=== PATIENT | female | born 1950 | race Caucasian/White ===

== ENCOUNTER 2020-12-27 10:29 | Inpatient (IN) | payer MEDICARE, OTHER ==
[~2020-12-27] VITALS: Ht 152.4 cm; Wt 46.3 kg
[~2020-12-27 10:29] MED LIST: ACIDOPHILUS1 EAC1 PO; ALIGN4 MG PO; AMLODIPINE BESYL5 MG PO; ASPIR 8181 MG PO; CALCIUM + VITA1 EACH PO; EMERGEN-C 1,01000 MG PO; GABAPENTIN100 MG PO; HAIR, SKIN & N1 EACH PO; ONE A DAY VITAMIN PO; TURMERIC538 MG PO; ZINC SULFATE220 M1 PO
[2020-12-27] MEDS ORDERED: ASPIRIN 81 MG CHEW TAB PO ONE (10:45)
[2020-12-27] MEDS ORDERED: KETOROLAC TROMETHAMINE 30 MG/ML VIAL IV STA (10:48)
[2020-12-27] MEDS ORDERED: MORPHINE SULFATE INJ 2 MG/ML SYR IV PRN (11:00)
[2020-12-27 11:14] LABS: BASOPHILS # (AUTO) 0.1 (0.0-0.1); BASOPHILS % 0.4 % (0.0-1.0); EOSINOPHILS # (AUTO) 0.2 (0.0-0.4); EOSINOPHILS % 1.1 % (0.0-6.0); HEMATOCRIT 36.9 % (34.2-44.1); HEMOGLOBIN 11.7 g/dL (12.0-16.0); LYMPHOCYTES # (AUTO) 1.6 (1.0-3.2); LYMPHOCYTES % 11.5 % (18.0-39.1); MEAN CORPUSCULAR HGB CONC 31.7 g/dL (31-35); MEAN CORPUSCULAR VOLUME 88.3 fL (81-99); MONOCYTES # (AUTO) 0.5 (0.2-0.8); MONOCYTES % 3.9 % (4.4-11.3); NEUTROPHILS # (AUTO) 11.4 (2.1-6.9); NEUTROPHILS % 82.5 % (38.7-80.0); PLATELET COUNT 379 x10e3/uL (140-360); RED BLOOD COUNT 4.18 x10e6/uL (3.6-5.1); RED CELL DISTRIBUTION WIDTH 13.7 % (11.7-14.4)
[2020-12-27 11:40] LABS: ALANINE AMINOTRANSFERASE 14 IU/L (0-55); ALBUMIN/GLOBULIN RATIO 1.1 (0.8-2.0); ALKALINE PHOSPHATASE 104 IU/L (40-150); BLOOD UREA NITROGEN 15 mg/dL (7-26); BUN/CREATININE RATIO 23 (6-25); CALCIUM 9.4 mg/dL (8.4-10.2); CARBON DIOXIDE 27 mmol/L (22-29); CHLORIDE 101 mmol/L (98-107); CREATINE KINASE 132 IU/L (29-168); CREATININE, SERUM 0.66 mg/dL (0.57-1.11); EST GLOMERULAR FILTRATION RATE > 60 ML/MIN (60-); GLUCOSE 107 mg/dL (74-118); SODIUM 141 mmol/L (136-145)
[2020-12-27] MEDS: ONDANSETRON HCL INJ 2MG/ML 2ML 2 MG/ML VIAL IV PRN ×2 (11:53→21:10)
[2020-12-27] MEDS: MORPHINE SULFATE INJ 4 MG/ML INJ 1ML IV PRN ×3 (11:53→21:10)
[2020-12-27] MEDS: SODIUM CHLORIDE 0.9% 1000ML 1,000 ML IV SCH ×2 (11:53→19:45)
[2020-12-27] MEDS ORDERED: KETOROLAC TROMETHAMINE 30 MG/ML VIAL IV PRN (13:32)
[2020-12-27] MEDS ORDERED: CEFAZOLIN SOD 1 GM VIAL IV ONE (13:45)
[2020-12-27] MEDS ORDERED: SODIUM CHLORIDE 0.9% 250ML 250 ML IV ONE (13:45)
[2020-12-27 16:49] LABS: INR 0.9; PARTIAL THROMBOPLASTIN TIME 28.8 seconds (23.8-35.5)
[2020-12-27] MEDS ORDERED: MODAFINIL100 MG PO (17:02)
[2020-12-27] MEDS ORDERED: ZOLOFT100 MG PO (17:02)
[2020-12-27 17:15] VITALS: BP 167/81
[2020-12-27] MEDS ORDERED: HYDRALAZINE HCL 20 MG/ML VIAL IV PRN (19:00)
[2020-12-27 20:00] VITALS: BP 151/84
[2020-12-27 20:25] VITALS: BP 151/84
[2020-12-27] MEDS ORDERED: DIPHENHYDRAMINE HCL 25 MG CAP PO ONE (22:15)
[2020-12-27] MEDS ORDERED: AMLODIPINE BESYLATE 5 MG TAB PO ONE (22:45)
[2020-12-28] VITALS: BP 139/73
[2020-12-28] MEDS: MORPHINE SULFATE INJ 4 MG/ML INJ 1ML IV PRN ×3 (01:05→18:00)
[2020-12-28] MEDS: ONDANSETRON HCL INJ 2MG/ML 2ML 2 MG/ML VIAL IV PRN ×2 (01:05→05:07)
[2020-12-28 04:00] VITALS: BP 122/56
[2020-12-28 04:56] LABS: BASOPHILS # (AUTO) 0.1 (0.0-0.1); BASOPHILS % 0.5 % (0.0-1.0); EOSINOPHILS # (AUTO) 0.5 (0.0-0.4); EOSINOPHILS % 3.9 % (0.0-6.0); HEMATOCRIT 36.5 % (34.2-44.1); HEMOGLOBIN 11.5 g/dL (12.0-16.0); LYMPHOCYTES # (AUTO) 2.5 (1.0-3.2); LYMPHOCYTES % 18.1 % (18.0-39.1); MEAN CORPUSCULAR HEMOGLOBIN 28.1 pg (28-32); MEAN CORPUSCULAR HGB CONC 31.5 g/dL (31-35); MEAN CORPUSCULAR VOLUME 89.2 fL (81-99); MONOCYTES # (AUTO) 0.7 (0.2-0.8); MONOCYTES % 5.5 % (4.4-11.3); NEUTROPHILS # (AUTO) 9.7 (2.1-6.9); NEUTROPHILS % 71.6 % (38.7-80.0); PLATELET COUNT 370 x10e3/uL (140-360); RED BLOOD COUNT 4.09 x10e6/uL (3.6-5.1); RED CELL DISTRIBUTION WIDTH 13.6 % (11.7-14.4)
[2020-12-28 05:19] LABS: ANION GAP 18.8 mmol/L (8-16); BLOOD UREA NITROGEN 10 mg/dL (7-26); BUN/CREATININE RATIO 16 (6-25); CALCIUM 9.4 mg/dL (8.4-10.2); CARBON DIOXIDE 25 mmol/L (22-29); CHLORIDE 100 mmol/L (98-107); CREATININE, SERUM 0.63 mg/dL (0.57-1.11); EST GLOMERULAR FILTRATION RATE > 60 ML/MIN (60-); GLUCOSE 65 mg/dL (74-118); POTASSIUM 3.8 mmol/L (3.5-5.1); SODIUM 140 mmol/L (136-145)
[2020-12-28] MEDS ORDERED: CEFAZOLIN SOD 2 GM/NS 50ML 50 ML IV ONE (06:00)
[2020-12-28] MEDS ORDERED: TRANEXAMIC ACID 1,000 MG/10 ML ML ONE (06:48)
[2020-12-28] MEDS ORDERED: VANCOMYCIN HCL 1,000 MG ONE (06:48)
[2020-12-28] MEDS ORDERED: SODIUM CHLORIDE 0.9% 500ML 500 ML ONE (06:52)
[2020-12-28] MEDS ORDERED: SODIUM CHLORIDE 0.9% 1000ML 1,000 ML IV SCH (08:30)
[2020-12-28] MEDS ORDERED: KETOROLAC TROMETHAMINE 30 MG/ML VIAL IV PRN (08:30)
[2020-12-28] MEDS ORDERED: HYDROCODONE/APAP 7.5MG-325MG 1 EA TAB PO PRN (08:30)
[2020-12-28] MEDS ORDERED: HYDROCODONE/APAP 5MG-325MG TAB PO PRN (08:30)
[2020-12-28] MEDS ORDERED: ACETAMINOPHEN 650 MG SUPP PR PRN (08:30)
[2020-12-28] MEDS ORDERED: ONDANSETRON HCL INJ 2MG/ML 2ML 2 MG/ML VIAL IV PRN (08:30)
[2020-12-28] MEDS ORDERED: DOCUSATE SODIUM 100 MG CAP PO PRN (08:30)
[2020-12-28] MEDS: FAMOTIDINE 20 MG/2 ML VIAL IV SCH (09:00)
[2020-12-28] MEDS: AMLODIPINE BESYLATE 5 MG TAB PO SCH (09:00)
[2020-12-28] MEDS: ASPIRIN 325 MG TAB PO SCH ×2 (09:00→17:17)
[2020-12-28] MEDS: CELECOXIB 100 MG CAP PO SCH ×2 (09:00→17:17)
[2020-12-28] MEDS ORDERED: METOCLOPRAMIDE HCL 10 MG/2ML VIAL ONE (09:28)
[2020-12-28] MEDS ORDERED: ROPIVACAINE 246.25 MG, EPINEPHRINE HCL 1:1000 1ML 0.5 MG, CLONIDINE HCL 0.08 MG, KETORO... INJ ONE ×5 (10:00)
[2020-12-28] MEDS ORDERED: ACETAMINOPHEN 1000 MG/100 ML IV PRN (11:00)
[2020-12-28] MEDS ORDERED: PROPOFOL IV EMULSION 10 MG/ML 20 ML VIAL ONE (11:51)
[2020-12-28] MEDS ORDERED: SEVOFLURANE INHAL SOLN 250 ML PEN BTL ONE (11:51)
[2020-12-28] MEDS ORDERED: LIDOCAINE HCL 2% LOCAL INJ 5 ML SDV VIAL INJ ONE (11:51)
[2020-12-28] MEDS ORDERED: DEXAMETHASONE SOD PHOS INJ 4 MG/ML VIAL ONE (11:51)
[2020-12-28] MEDS ORDERED: EPHEDRINE SULFATE INJ 50 MG/ML VIAL ONE (11:51)
[2020-12-28] MEDS ORDERED: ONDANSETRON HCL INJ 2MG/ML 2ML 2 MG/ML VIAL ONE (11:51)
[2020-12-28] MEDS ORDERED: POVIDONE IODINE 0.05% 0.05 % ML PO ONE (11:51)
[2020-12-28] MEDS ORDERED: PHENYLEPHRINE HCL 1% 10 MG/ML VIAL ONE (11:51)
[2020-12-28 12:13] VITALS: BP 114/66
[2020-12-28 16:16] VITALS: BP 121/63
[2020-12-28] MEDS: CEFAZOLIN SOD 1 GM/NS 50ML 50 ML IV SCH (17:17)
[2020-12-28] MEDS: DIPHENHYDRAMINE HCL INJ 50 MG/ML VIAL IV PRN (20:04)
[2020-12-28 20:17] VITALS: BP 164/82
[2020-12-28 20:41] VITALS: BP 164/82
[2020-12-28] MEDS ORDERED: ZOLPIDEM TARTRATE 5 MG TAB PO PRN (21:00)
[2020-12-29] VITALS (8 sets, daily range): BP systolic 130–162; BP diastolic 64–82
[2020-12-29] MEDS: CEFAZOLIN SOD 1 GM/NS 50ML 50 ML IV SCH ×2 (00:39→08:11)
[2020-12-29] MEDS: MORPHINE SULFATE INJ 4 MG/ML INJ 1ML IV PRN (00:50)
[2020-12-29] MEDS: DIPHENHYDRAMINE HCL INJ 50 MG/ML VIAL IV PRN ×3 (04:54→16:18)
[2020-12-29 04:56] LABS: HEMATOCRIT 28.7 % (34.2-44.1); HEMOGLOBIN 9.3 g/dL (12.0-16.0)
[2020-12-29] MEDS: AMLODIPINE BESYLATE 5 MG TAB PO SCH (08:11)
[2020-12-29] MEDS: ASPIRIN 325 MG TAB PO SCH ×2 (08:11→16:36)
[2020-12-29] MEDS: FAMOTIDINE 20 MG/2 ML VIAL IV SCH (08:11)
[2020-12-29] MEDS: CELECOXIB 200 MG CAP PO SCH ×2 (08:11→16:36)
[2020-12-29] MEDS: ACETAMINOPHEN/CODEINE 300MG - 30MG TAB PO PRN ×2 (13:15→21:38)
[2020-12-30] VITALS: BP 127/70
[2020-12-30 04:00] VITALS: BP 133/87
[2020-12-30] MEDS: DIPHENHYDRAMINE HCL INJ 50 MG/ML VIAL IV PRN (04:38)
[2020-12-30 04:39] LABS: BASOPHILS # (AUTO) 0.1 (0.0-0.1); BASOPHILS % 0.4 % (0.0-1.0); EOSINOPHILS # (AUTO) 0.8 (0.0-0.4); EOSINOPHILS % 6.8 % (0.0-6.0); HEMATOCRIT 33.5 % (34.2-44.1); HEMOGLOBIN 10.9 g/dL (12.0-16.0); LYMPHOCYTES # (AUTO) 2.1 (1.0-3.2); LYMPHOCYTES % 18.7 % (18.0-39.1); MEAN CORPUSCULAR HEMOGLOBIN 28.1 pg (28-32); MEAN CORPUSCULAR HGB CONC 32.5 g/dL (31-35); MEAN CORPUSCULAR VOLUME 86.3 fL (81-99); MONOCYTES # (AUTO) 0.6 (0.2-0.8); MONOCYTES % 5.5 % (4.4-11.3); NEUTROPHILS # (AUTO) 7.6 (2.1-6.9); NEUTROPHILS % 68.3 % (38.7-80.0); PLATELET COUNT 357 x10e3/uL (140-360); RED BLOOD COUNT 3.88 x10e6/uL (3.6-5.1); RED CELL DISTRIBUTION WIDTH 13.5 % (11.7-14.4)
[2020-12-30] MEDS: ACETAMINOPHEN/CODEINE 300MG - 30MG TAB PO PRN (04:48)
[2020-12-30 07:36] VITALS: BP 145/76
[2020-12-30 07:52] VITALS: BP 145/76
[2020-12-30] MEDS: ASPIRIN 325 MG TAB PO SCH (08:29)
[2020-12-30] MEDS: AMLODIPINE BESYLATE 5 MG TAB PO SCH (08:29)
[2020-12-30] MEDS: FAMOTIDINE 20 MG/2 ML VIAL IV SCH (08:29)
[2020-12-30] MEDS ORDERED: MODAFINIL 100 MG TAB PO SCH (09:00)
[2020-12-30 11:20] VITALS: BP 141/67
[2020-12-30] MEDS ORDERED: ASPIRIN325 MG PO (13:10)
[2020-12-30] MEDS ORDERED: TYLENOL # 31 EA PO (13:28)
== END 2020-12-30 14:10 | disposition home or self-care (01) | DRG 522 ==
LOC: ER 10:35 → ERHOLD 10:47 → MED/SURG 17:31
PROVIDERS: ADMIT Internal Medicine; ATTEND Internal Medicine
PROC: 0SRB02A Replacement of Left Hip Joint with Metal on Polyethylene Synthetic Substitute, Uncemented, Open Approach (ICD-10-PCS; principal; 2020-12-28 07:30)
DX: S72.012A Unspecified intracapsular fracture of left femur, initial encounter for closed fracture (principal); G20 Parkinson's disease; I10 Essential (primary) hypertension; W19.XXXA Unspecified fall, initial encounter; Y92.009 Unspecified place in unspecified non-institutional (private) residence as the place of occurrence of the external cause; R21 Rash and other nonspecific skin eruption; Z74.09 Other reduced mobility; Z20.822 Contact with and (suspected) exposure to COVID-19; K21.9 Gastro-esophageal reflux disease without esophagitis
CPT/HCPCS: 36415; 71045; 72170; 80048; 80053; 82550; 82553; 84484; 85014; 85018; 85025; 85610; 85730; 86850; 86900; 86920; 97139; 99251; 99284; C1713; C1776; J0171; J0690; J1100; J1200; J1885; J2001; J2270; J2370; J2405; J2765; J2795; J3370; J7030; J7040; U0002

== ENCOUNTER 2021-06-01 21:39 | Emergency (ER) | payer MEDICARE, OTHER ==
[~2021-06-01] VITALS: Ht 152.4 cm; Wt 43.1 kg
[~2021-06-01 21:39] MED LIST changes: +ASPIRIN325 MG PO; +MODAFINIL100 MG PO; +TYLENOL # 31 EA PO; +ZOLOFT100 MG PO
[2021-06-01] MEDS ORDERED: Morphine 4mg Syringe 4 MG/ML INJ IM ONE (22:45)
[2021-06-01] MEDS ORDERED: ULTRACET TABLE1 EACH PO (23:48)
[2021-06-01] MEDS ORDERED: IBUPROFEN600 MG PO (23:48)
[2021-06-02] MEDS ORDERED: KETOROLAC TROMETHAMINE 60 MG/2 ML VIAL IM ONE
[2021-06-02 06:00] VITALS: BP 132/85
== END 2021-06-02 03:00 | disposition home or self-care (01) ==
LOC: ER 21:42
DX: S42.202A Unspecified fracture of upper end of left humerus, initial encounter for closed fracture (principal); W18.30XA Fall on same level, unspecified, initial encounter; Y93.01 Activity, walking, marching and hiking; Y92.008 Other place in unspecified non-institutional (private) residence as the place of occurrence of the external cause; G20 Parkinson's disease; I10 Essential (primary) hypertension
CPT/HCPCS: 73060; 99284; J1885; J2270

== ENCOUNTER 2021-07-24 17:19 | Inpatient (IN) | payer MEDICARE, OTHER ==
[~2021-07-24] VITALS: Ht 167.6 cm; Wt 43.1 kg
[~2021-07-24 17:19] MED LIST changes: +IBUPROFEN600 MG PO; +ULTRACET TABLE1 EACH PO
[2021-07-24 18:10] LABS: BASOPHILS # (AUTO) 0.1 (0.0-0.1); BASOPHILS % 0.6 % (0.0-1.0); EOSINOPHILS # (AUTO) 0.1 (0.0-0.4); EOSINOPHILS % 0.8 % (0.0-6.0); HEMATOCRIT 35.5 % (34.2-44.1); LYMPHOCYTES # (AUTO) 2.3 (1.0-3.2); LYMPHOCYTES % 17.2 % (18.0-39.1); MEAN CORPUSCULAR VOLUME 87.2 fL (81-99); MONOCYTES # (AUTO) 0.7 (0.2-0.8); MONOCYTES % 5.6 % (4.4-11.3); NEUTROPHILS # (AUTO) 10.1 (2.1-6.9); NEUTROPHILS % 75.6 % (38.7-80.0); PLATELET COUNT 520 x10e3/uL (140-360); RED BLOOD COUNT 4.07 x10e6/uL (3.6-5.1); RED CELL DISTRIBUTION WIDTH 13.4 % (11.7-14.4)
[2021-07-24 18:31] LABS: ALBUMIN 3.8 g/dL (3.5-5.0); ALBUMIN/GLOBULIN RATIO 1.1 (0.8-2.0); ANION GAP 16.4 mmol/L (8-16); CALCIUM 9.6 mg/dL (8.4-10.2); CREATININE, SERUM 0.57 mg/dL (0.57-1.11); MAGNESIUM 1.5 MG/DL (1.3-2.1); POTASSIUM 3.4 mmol/L (3.5-5.1)
[2021-07-24 19:06] LABS: CLARITY,URINE CLEAR (CLEAR); COLOR,URINE YELLOW (YELLOW); KETONES,URINE NEGATIVE (NEGATIVE); LEUKOCYTE ESTERASE ,URINE NEGATIVE (NEGATIVE); NITRITE,URINE NEGATIVE (NEGATIVE); PROTEIN,URINE DIPSTICK 1+ (NEGATIVE); URINE UROBILINOGEN 0.2 mg/dL (0.2 - 1)
[2021-07-24] MEDS ORDERED: ONDANSETRON HCL INJ 2MG/ML 2ML 2 MG/ML VIAL IV PRN (19:15)
[2021-07-24] MEDS ORDERED: HYDROCODONE/APAP 5MG-325MG TAB PO PRN (19:15)
[2021-07-24 19:18] LABS: BACTERIA,URINE MODERATE /HPF; EPITHELIAL CELLS,URINE FEW /LPF; MUCUS,URINE MANY (RARE)
[2021-07-24] MEDS: SODIUM CHLORIDE 0.9% 1000ML 1,000 ML IV SCH (19:49)
[2021-07-24] MEDS: HYDROCODONE BIT/ACETAMINOPHEN 2.5 MG/108MG PER 5 ML SOLUTION PO PRN (20:50)
[2021-07-25] VITALS (7 sets, daily range): BP systolic 137–181; BP diastolic 67–91
[2021-07-25] MEDS: HYDROCODONE BIT/ACETAMINOPHEN 2.5 MG/108MG PER 5 ML SOLUTION PO PRN (03:46)
[2021-07-25] MEDS: SODIUM CHLORIDE 0.9% 1000ML 1,000 ML IV SCH ×2 (06:28→15:15)
[2021-07-25 07:18] LABS: BASOPHILS # (AUTO) 0.1 (0.0-0.1); BASOPHILS % 0.6 % (0.0-1.0); EOSINOPHILS # (AUTO) 0.4 (0.0-0.4); HEMATOCRIT 32.6 % (34.2-44.1); HEMOGLOBIN 9.9 g/dL (12.0-16.0); LYMPHOCYTES # (AUTO) 2.5 (1.0-3.2); LYMPHOCYTES % 21.7 % (18.0-39.1); MEAN CORPUSCULAR HEMOGLOBIN 26.8 pg (28-32); MEAN CORPUSCULAR HGB CONC 30.4 g/dL (31-35); MEAN CORPUSCULAR VOLUME 88.1 fL (81-99); MONOCYTES # (AUTO) 0.7 (0.2-0.8); MONOCYTES % 6.4 % (4.4-11.3); NEUTROPHILS # (AUTO) 7.9 (2.1-6.9); NEUTROPHILS % 68.1 % (38.7-80.0); PLATELET COUNT 429 x10e3/uL (140-360); RED CELL DISTRIBUTION WIDTH 13.2 % (11.7-14.4)
[2021-07-25 07:36] LABS: ANION GAP 11.5 mmol/L (8-16); CALCIUM 10.2 mg/dL (8.4-10.2); CREATININE, SERUM 0.53 mg/dL (0.57-1.11); POTASSIUM 3.5 mmol/L (3.5-5.1)
[2021-07-25 08:22] LABS: THYROID STIMULATING HORMONE 1.484 uIU/mL (0.350-4.940)
[2021-07-25 10:45] LABS: CHOL/HDL RATIO 3.7 (3.0-3.6)
[2021-07-25] MEDS: ASPIRIN 325 MG TAB PO SCH (17:12)
[2021-07-25] MEDS: SERTRALINE HCL 100 MG TAB PO SCH (21:15)
[2021-07-26] VITALS (9 sets, daily range): BP systolic 138–168; BP diastolic 68–82
[2021-07-26] MEDS: SODIUM CHLORIDE 0.9% 1000ML 1,000 ML IV SCH ×3 (00:35→21:15)
[2021-07-26] MEDS: HYDROCODONE BIT/ACETAMINOPHEN 2.5 MG/108MG PER 5 ML SOLUTION PO PRN (00:35)
[2021-07-26] MEDS: HYDRALAZINE HCL 20 MG/ML VIAL IV PRN (00:49)
[2021-07-26 07:59] LABS: BASOPHILS # (AUTO) 0.1 (0.0-0.1); BASOPHILS % 0.4 % (0.0-1.0); EOSINOPHILS # (AUTO) 0.2 (0.0-0.4); EOSINOPHILS % 1.6 % (0.0-6.0); HEMATOCRIT 30.7 % (34.2-44.1); HEMOGLOBIN 9.6 g/dL (12.0-16.0); LYMPHOCYTES # (AUTO) 2.2 (1.0-3.2); LYMPHOCYTES % 18.3 % (18.0-39.1); MEAN CORPUSCULAR HGB CONC 31.3 g/dL (31-35); MEAN CORPUSCULAR VOLUME 86.5 fL (81-99); MONOCYTES # (AUTO) 0.7 (0.2-0.8); MONOCYTES % 5.8 % (4.4-11.3); NEUTROPHILS # (AUTO) 8.7 (2.1-6.9); NEUTROPHILS % 73.6 % (38.7-80.0); PLATELET COUNT 401 x10e3/uL (140-360); RED BLOOD COUNT 3.55 x10e6/uL (3.6-5.1); RED CELL DISTRIBUTION WIDTH 13.2 % (11.7-14.4)
[2021-07-26] MEDS ORDERED: ONDANSETRON HCL 4 MG ORAL DISINTEGRATING TAB PO PRN (08:00)
[2021-07-26 08:20] LABS: ANION GAP 12.1 mmol/L (8-16); CALCIUM 9.8 mg/dL (8.4-10.2); CREATININE, SERUM 0.51 mg/dL (0.57-1.11); MAGNESIUM 1.4 MG/DL (1.3-2.1); PHOSPHORUS 2.7 MG/DL (2.3-4.7); POTASSIUM 3.1 mmol/L (3.5-5.1)
[2021-07-26] MEDS: AMLODIPINE BESYLATE 5 MG TAB PO SCH (09:00)
[2021-07-26] MEDS: ASPIRIN 325 MG TAB PO SCH ×2 (09:00→18:34)
[2021-07-26] MEDS ORDERED: ZINC SULFATE 220 MG CAP PO SCH (09:00)
[2021-07-26] MEDS: DOCUSATE SODIUM LIQD 100 MG/10 ML UDC NG SCH (09:00)
[2021-07-26] MEDS: GABAPENTIN 100 MG CAP PO SCH (09:00)
[2021-07-26] MEDS: MODAFINIL 100 MG TAB PO SCH (09:00)
[2021-07-26] MEDS: LACTOBACILLUS ACIDOPHILUS CAPSULE PO SCH (09:00)
[2021-07-26] MEDS: FAMOTIDINE 20 MG TAB PO SCH (10:00)
[2021-07-26] MEDS ORDERED: POTASSIUM CHLORIDE 20 MEQ TAB CR PO ONE (10:30)
[2021-07-26] MEDS ORDERED: POLYETHYLENE GLYCOL 3350 17 GM PACK PO SCH (17:00)
[2021-07-26] MEDS: SERTRALINE HCL 100 MG TAB PO SCH (20:40)
[2021-07-27] VITALS (8 sets, daily range): BP systolic 137–168; BP diastolic 63–76
[2021-07-27] MEDS: HYDRALAZINE HCL 20 MG/ML VIAL IV PRN ×3 (00:30→22:07)
[2021-07-27] MEDS: HYDROCODONE BIT/ACETAMINOPHEN 2.5 MG/108MG PER 5 ML SOLUTION PO PRN ×2 (01:25→19:15)
[2021-07-27] MEDS: SODIUM CHLORIDE 0.9% 1000ML 1,000 ML IV SCH ×2 (04:55→20:47)
[2021-07-27 06:29] LABS: BASOPHILS # (AUTO) 0.1 (0.0-0.1); BASOPHILS % 0.6 % (0.0-1.0); EOSINOPHILS # (AUTO) 0.3 (0.0-0.4); EOSINOPHILS % 2.1 % (0.0-6.0); HEMATOCRIT 30.6 % (34.2-44.1); HEMOGLOBIN 9.5 g/dL (12.0-16.0); LYMPHOCYTES # (AUTO) 2.8 (1.0-3.2); LYMPHOCYTES % 22.9 % (18.0-39.1); MEAN CORPUSCULAR HEMOGLOBIN 26.8 pg (28-32); MEAN CORPUSCULAR VOLUME 86.2 fL (81-99); MONOCYTES # (AUTO) 0.7 (0.2-0.8); MONOCYTES % 5.4 % (4.4-11.3); NEUTROPHILS # (AUTO) 8.3 (2.1-6.9); NEUTROPHILS % 68.8 % (38.7-80.0); PLATELET COUNT 456 x10e3/uL (140-360); RED BLOOD COUNT 3.55 x10e6/uL (3.6-5.1); RED CELL DISTRIBUTION WIDTH 13.4 % (11.7-14.4)
[2021-07-27 06:56] LABS: ANION GAP 13.1 mmol/L (8-16); CALCIUM 9.7 mg/dL (8.4-10.2); CREATININE, SERUM 0.52 mg/dL (0.57-1.11); MAGNESIUM 1.4 MG/DL (1.3-2.1); PHOSPHORUS 2.7 MG/DL (2.3-4.7); POTASSIUM 3.1 mmol/L (3.5-5.1)
[2021-07-27] MEDS: MODAFINIL 100 MG TAB PO SCH (09:00)
[2021-07-27] MEDS: ASPIRIN 325 MG TAB PO SCH ×2 (09:00→17:00)
[2021-07-27] MEDS: AMLODIPINE BESYLATE 5 MG TAB PO SCH (09:00)
[2021-07-27] MEDS: GABAPENTIN 100 MG CAP PO SCH (09:00)
[2021-07-27] MEDS: DOCUSATE SODIUM LIQD 100 MG/10 ML UDC NG SCH (09:00)
[2021-07-27] MEDS: LACTOBACILLUS ACIDOPHILUS CAPSULE PO SCH (09:00)
[2021-07-27] MEDS: POLYETHYLENE GLYCOL 3350 17 GM PACK PO SCH (09:00)
[2021-07-27] MEDS: SERTRALINE HCL 100 MG TAB PO SCH (20:47)
[2021-07-28] VITALS (7 sets, daily range): BP systolic 139–158; BP diastolic 63–79
[2021-07-28] MEDS: HYDROCODONE BIT/ACETAMINOPHEN 2.5 MG/108MG PER 5 ML SOLUTION PO PRN ×2 (04:07→09:54)
[2021-07-28] MEDS: SODIUM CHLORIDE 0.9% 1000ML 1,000 ML IV SCH ×3 (04:08→21:21)
[2021-07-28] MEDS: FAMOTIDINE 20 MG TAB PO SCH (08:00)
[2021-07-28] MEDS: ASPIRIN 325 MG TAB PO SCH ×2 (08:35→17:08)
[2021-07-28] MEDS: GABAPENTIN 100 MG CAP PO SCH (08:35)
[2021-07-28] MEDS: POLYETHYLENE GLYCOL 3350 17 GM PACK PO SCH (08:35)
[2021-07-28] MEDS: DOCUSATE SODIUM LIQD 100 MG/10 ML UDC NG SCH (08:35)
[2021-07-28] MEDS: MODAFINIL 100 MG TAB PO SCH (08:36)
[2021-07-28] MEDS: LACTOBACILLUS ACIDOPHILUS CAPSULE PO SCH (08:36)
[2021-07-28] MEDS: AMLODIPINE BESYLATE 5 MG TAB PO SCH (08:36)
[2021-07-28] MEDS ORDERED: LIDOCAINE HCL 2% LOCAL INJ 5 ML SDV VIAL INJ ONE (14:22)
[2021-07-28] MEDS ORDERED: PROPOFOL IV EMULSION 10 MG/ML 20 ML VIAL ONE (14:22)
[2021-07-28] MEDS: SERTRALINE HCL 100 MG TAB PO SCH (21:00)
[2021-07-29] VITALS (8 sets, daily range): BP systolic 131–158; BP diastolic 61–73
[2021-07-29] MEDS: SODIUM CHLORIDE 0.9% 1000ML 1,000 ML IV SCH ×2 (06:27→19:15)
[2021-07-29 06:59] LABS: BASOPHILS # (AUTO) 0.1 (0.0-0.1); BASOPHILS % 0.4 % (0.0-1.0); EOSINOPHILS # (AUTO) 0.3 (0.0-0.4); EOSINOPHILS % 2.1 % (0.0-6.0); HEMATOCRIT 29.8 % (34.2-44.1); HEMOGLOBIN 9.4 g/dL (12.0-16.0); LYMPHOCYTES % 15.5 % (18.0-39.1); MEAN CORPUSCULAR HEMOGLOBIN 27.3 pg (28-32); MEAN CORPUSCULAR HGB CONC 31.5 g/dL (31-35); MEAN CORPUSCULAR VOLUME 86.6 fL (81-99); MONOCYTES # (AUTO) 0.6 (0.2-0.8); NEUTROPHILS # (AUTO) 9.6 (2.1-6.9); NEUTROPHILS % 76.7 % (38.7-80.0); PLATELET COUNT 406 x10e3/uL (140-360); RED BLOOD COUNT 3.44 x10e6/uL (3.6-5.1); RED CELL DISTRIBUTION WIDTH 13.5 % (11.7-14.4)
[2021-07-29 07:29] LABS: ALBUMIN 3.2 g/dL (3.5-5.0); ANION GAP 11.7 mmol/L (8-16); CALCIUM 9.8 mg/dL (8.4-10.2)
[2021-07-29 07:32] LABS: POTASSIUM 2.7 mmol/L (3.5-5.1)
[2021-07-29 07:47] LABS: CREATININE, SERUM 0.5 mg/dL (0.57-1.11)
[2021-07-29] MEDS: GABAPENTIN 100 MG CAP PO SCH (09:16)
[2021-07-29] MEDS: ASPIRIN 325 MG TAB PO SCH ×2 (09:16→17:51)
[2021-07-29] MEDS: MODAFINIL 100 MG TAB PO SCH (09:16)
[2021-07-29] MEDS: POLYETHYLENE GLYCOL 3350 17 GM PACK PO SCH (09:16)
[2021-07-29] MEDS: LACTOBACILLUS ACIDOPHILUS CAPSULE PO SCH (09:16)
[2021-07-29] MEDS: DOCUSATE SODIUM LIQD 100 MG/10 ML UDC NG SCH (09:16)
[2021-07-29] MEDS: FAMOTIDINE 20 MG TAB PO SCH (09:16)
[2021-07-29] MEDS: AMLODIPINE BESYLATE 5 MG TAB PO SCH (09:16)
[2021-07-29] MEDS ORDERED: POTASSIUM CHLORIDE 20 MEQ TAB CR PO NR (11:33)
[2021-07-29] MEDS: SERTRALINE HCL 100 MG TAB PO SCH (21:19)
[2021-07-30] VITALS (8 sets, daily range): BP systolic 136–166; BP diastolic 58–80
[2021-07-30] MEDS ORDERED: BISACODYL 10 MG SUPP PR ONE (00:45)
[2021-07-30] MEDS: SODIUM CHLORIDE 0.9% 1000ML 1,000 ML IV SCH ×2 (05:15→15:28)
[2021-07-30] MEDS: DOCUSATE SODIUM LIQD 100 MG/10 ML UDC NG SCH (08:08)
[2021-07-30] MEDS: POLYETHYLENE GLYCOL 3350 17 GM PACK PO SCH (08:08)
[2021-07-30] MEDS: AMLODIPINE BESYLATE 5 MG TAB PO SCH (08:08)
[2021-07-30] MEDS: FAMOTIDINE 20 MG TAB PO SCH (08:08)
[2021-07-30] MEDS: ASPIRIN 325 MG TAB PO SCH ×2 (08:08→16:51)
[2021-07-30] MEDS: LACTOBACILLUS ACIDOPHILUS CAPSULE PO SCH (08:08)
[2021-07-30] MEDS: MODAFINIL 100 MG TAB PO SCH (08:09)
[2021-07-30] MEDS: HYDROCODONE BIT/ACETAMINOPHEN 2.5 MG/108MG PER 5 ML SOLUTION PO PRN (08:09)
[2021-07-30 08:15] LABS: BASOPHILS % 0.4 % (0.0-1.0); EOSINOPHILS # (AUTO) 0.3 (0.0-0.4); EOSINOPHILS % 3.1 % (0.0-6.0); HEMATOCRIT 29.3 % (34.2-44.1); HEMOGLOBIN 9.2 g/dL (12.0-16.0); LYMPHOCYTES # (AUTO) 1.7 (1.0-3.2); MEAN CORPUSCULAR HEMOGLOBIN 26.6 pg (28-32); MEAN CORPUSCULAR HGB CONC 31.4 g/dL (31-35); MEAN CORPUSCULAR VOLUME 84.7 fL (81-99); MONOCYTES # (AUTO) 0.7 (0.2-0.8); MONOCYTES % 6.2 % (4.4-11.3); NEUTROPHILS # (AUTO) 7.9 (2.1-6.9); NEUTROPHILS % 73.9 % (38.7-80.0); PLATELET COUNT 422 x10e3/uL (140-360); RED BLOOD COUNT 3.46 x10e6/uL (3.6-5.1); RED CELL DISTRIBUTION WIDTH 13.6 % (11.7-14.4)
[2021-07-30 08:23] LABS: ALBUMIN 3.2 g/dL (3.5-5.0); ANION GAP 11.6 mmol/L (8-16); CALCIUM 9.6 mg/dL (8.4-10.2); CREATININE, SERUM 0.51 mg/dL (0.57-1.11); MAGNESIUM 1.5 MG/DL (1.3-2.1)
[2021-07-30 08:25] LABS: POTASSIUM 2.6 mmol/L (3.5-5.1)
[2021-07-30 08:57] LABS: % IRON SATURATION 8 % (15-50); IRON 25 ug/dL (50-170); TOTAL IRON BINDING CAPACITY 314 ug/dL (261-478); TRANSFERRIN 224 mg/dL (180-382)
[2021-07-30] MEDS ORDERED: POTASSIUM CHLORIDE 20 MEQ TAB CR PO NR (09:17)
[2021-07-30] MEDS ORDERED: MICONAZOLE NITRATE VG PRN (13:45)
[2021-07-30] MEDS ORDERED: KCL 20 MEQ PACKET/ ORAL SOLN PEG NR (13:45)
[2021-07-30] MEDS: SERTRALINE HCL 100 MG TAB PO SCH (21:00)
[2021-07-30] MEDS ORDERED: GABAPENTIN 100 MG CAP PO SCH (21:00)
[2021-07-30] MEDS ORDERED: CYANOCOBALAMIN INJ 1,000 MCG/ML VIAL IM ONE (23:45)
[2021-07-31] VITALS: BP 145/52
[2021-07-31] MEDS: SODIUM CHLORIDE 0.9% 1000ML 1,000 ML IV SCH ×2 (03:57→11:15)
[2021-07-31 04:00] VITALS: BP 153/74
[2021-07-31 05:38] LABS: BASOPHILS % 0.3 % (0.0-1.0); EOSINOPHILS # (AUTO) 0.4 (0.0-0.4); HEMATOCRIT 28.9 % (34.2-44.1); HEMOGLOBIN 8.9 g/dL (12.0-16.0); LYMPHOCYTES # (AUTO) 1.5 (1.0-3.2); MEAN CORPUSCULAR HEMOGLOBIN 26.6 pg (28-32); MEAN CORPUSCULAR HGB CONC 30.8 g/dL (31-35); MEAN CORPUSCULAR VOLUME 86.3 fL (81-99); MONOCYTES # (AUTO) 0.9 (0.2-0.8); MONOCYTES % 6.6 % (4.4-11.3); NEUTROPHILS % 78.8 % (38.7-80.0); PLATELET COUNT 407 x10e3/uL (140-360); RED BLOOD COUNT 3.35 x10e6/uL (3.6-5.1); RED CELL DISTRIBUTION WIDTH 13.9 % (11.7-14.4)
[2021-07-31 06:10] LABS: ANION GAP 11.1 mmol/L (8-16); CREATININE, SERUM 0.52 mg/dL (0.57-1.11); MAGNESIUM 1.8 MG/DL (1.3-2.1); POTASSIUM 3.1 mmol/L (3.5-5.1)
[2021-07-31] MEDS: FAMOTIDINE 20 MG TAB PO SCH (08:00)
[2021-07-31 08:38] VITALS: BP 166/88
[2021-07-31] MEDS: ASPIRIN 325 MG TAB PO SCH (09:00)
[2021-07-31] MEDS: AMLODIPINE BESYLATE 5 MG TAB PO SCH (09:00)
[2021-07-31] MEDS: MODAFINIL 100 MG TAB PO SCH (09:00)
[2021-07-31] MEDS: POLYETHYLENE GLYCOL 3350 17 GM PACK PO SCH (09:00)
[2021-07-31] MEDS: DOCUSATE SODIUM LIQD 100 MG/10 ML UDC NG SCH (09:00)
[2021-07-31] MEDS ORDERED: IRON SUCROSE 100 MG in SODIUM CHLORIDE 0.9% 100 ML 100 ML IV SCH ×2 (09:00→21:00)
[2021-07-31] MEDS: LACTOBACILLUS ACIDOPHILUS CAPSULE PO SCH (09:00)
[2021-07-31] MEDS ORDERED: CYANOCOBALAMIN INJ 1,000 MCG/ML VIAL IM SCH ×2 (09:00→21:00)
[2021-07-31 09:31] VITALS: BP 166/88
[2021-07-31] MEDS ORDERED: KCL 20 MEQ PACKET/ ORAL SOLN PO ONE (10:35)
[2021-07-31 12:01] VITALS: BP 135/75
== END 2021-07-31 15:57 | DRG 640 ==
LOC: ER 17:25 → ERHOLD 19:21 → MED/SURG 07-25 07:30
PROVIDERS: ADMIT Internal Medicine; ATTEND Internal Medicine
PROC: 0DJ08ZZ Inspection of Upper Intestinal Tract, Via Natural or Artificial Opening Endoscopic (ICD-10-PCS; 2021-07-28)
PROC: 0DH68UZ Insertion of Feeding Device into Stomach, Via Natural or Artificial Opening Endoscopic (ICD-10-PCS; principal; 2021-07-28 12:30)
DX: R62.7 Adult failure to thrive (principal); E43 Unspecified severe protein-calorie malnutrition; Z68.1 Body mass index [BMI] 19.9 or less, adult; G20 Parkinson's disease; F32.A Depression, unspecified; Z99.81 Dependence on supplemental oxygen; K59.00 Constipation, unspecified; F41.9 Anxiety disorder, unspecified; D63.8 Anemia in other chronic diseases classified elsewhere; E87.6 Hypokalemia; R13.12 Dysphagia, oropharyngeal phase; Z74.09 Other reduced mobility; F03.90 Unspecified dementia, unspecified severity, without behavioral disturbance, psychotic disturbance, mood disturbance, and anxiety; K46.9 Unspecified abdominal hernia without obstruction or gangrene; K29.70 Gastritis, unspecified, without bleeding; R29.6 Repeated falls; Z20.822 Contact with and (suspected) exposure to COVID-19
CPT/HCPCS: 36415; 43246; 71045; 80048; 80053; 80061; 81001; 82607; 82746; 82948; 83540; 83735; 84100; 84443; 84466; 84484; 85025; 85045; 87040; 92522; 93005; 94799; 96361; 96376; 97139; 99251; 99284; J0360; J1756; J2001; J2405; J3420; J7030; U0002

== ENCOUNTER 2021-10-23 09:57 | Inpatient (IN) | payer MEDICARE, OTHER ==
[~2021-10-23] VITALS: Ht 152.4 cm; Wt 46.4 kg
[2021-10-23 10:15] LABS: BASOPHILS # (AUTO) 0.1 (0.0-0.1); BASOPHILS % 0.5 % (0.0-1.0); EOSINOPHILS # (AUTO) 0.2 (0.0-0.4); HEMATOCRIT 38.9 % (34.2-44.1); HEMOGLOBIN 12.5 g/dL (12.0-16.0); LYMPHOCYTES % 17.7 % (18.0-39.1); MEAN CORPUSCULAR HEMOGLOBIN 28.1 pg (28-32); MEAN CORPUSCULAR HGB CONC 32.1 g/dL (31-35); MEAN CORPUSCULAR VOLUME 87.4 fL (81-99); MONOCYTES # (AUTO) 0.7 (0.2-0.8); MONOCYTES % 5.6 % (4.4-11.3); NEUTROPHILS # (AUTO) 8.5 (2.1-6.9); NEUTROPHILS % 73.9 % (38.7-80.0); PLATELET COUNT 474 x10e3/uL (140-360); RED BLOOD COUNT 4.45 x10e6/uL (3.6-5.1); RED CELL DISTRIBUTION WIDTH 15.9 % (11.7-14.4)
[2021-10-23] MEDS ORDERED: DIATRIZOATE MEGL/DIATRIZOA SOD 30 ML BTL PO ONE (10:27)
[2021-10-23 10:29] LABS: ANION GAP 14.2 mmol/L (8-16); CALCIUM 10.3 mg/dL (8.4-10.2); CREATININE, SERUM 0.65 mg/dL (0.57-1.11); POTASSIUM 5.2 mmol/L (3.5-5.1)
[2021-10-23] MEDS ORDERED: SODIUM CHLORIDE 0.9% 1000ML 1,000 ML IV SCH ×2 (10:45→12:00)
[2021-10-23] MEDS ORDERED: Morphine 4mg Syringe 4 MG/ML INJ IV PRN (12:00)
[2021-10-23] MEDS ORDERED: ONDANSETRON HCL INJ 2MG/ML 2ML 2 MG/ML VIAL IV PRN (12:00)
[2021-10-23 12:46] VITALS: BP 160/90
[2021-10-23] MEDS ORDERED: IOPAMIDOL 370 MG/ML 200 ML INFUS..BTL INJ ONE (13:21)
[2021-10-23] MEDS ORDERED: SODIUM CHLORIDE 0.9% 50ML 50 ML ONE (13:21)
[2021-10-23] MEDS ORDERED: HYDRALAZINE HCL 20 MG/ML VIAL IV PRN (14:30)
[2021-10-23] MEDS ORDERED: LIDOCAINE 4% PATCH TP PRN (14:30)
[2021-10-23] MEDS ORDERED: DIPHENHYDRAMINE HCL 25 MG CAP PO PRN (14:30)
[2021-10-23] MEDS ORDERED: POTASSIUM CHLORIDE 20 MEQ TAB CR PO PRN (14:30)
[2021-10-23] MEDS ORDERED: BENZONATATE 100 MG CAP PO PRN (14:30)
[2021-10-23] MEDS ORDERED: ALBUTEROL/IPRATROPIUM 3 ML NEB NEB PRN (14:30)
[2021-10-23] MEDS ORDERED: SIMETHICONE 80 MG CHEW PO PRN (14:30)
[2021-10-23] MEDS ORDERED: ACETAMINOPHEN 325 MG TAB PO PRN (14:30)
[2021-10-23] MEDS ORDERED: DOCUSATE SODIUM 100 MG CAP PO PRN ×2 (14:30→15:15)
[2021-10-23] MEDS ORDERED: DEXTROSE 50% SYRINGE 50 ML IV PRN (14:30)
[2021-10-23 15:31] LABS: BASOPHILS # (AUTO) 0.1 (0.0-0.1); BASOPHILS % 0.5 % (0.0-1.0); EOSINOPHILS # (AUTO) 0.2 (0.0-0.4); EOSINOPHILS % 1.2 % (0.0-6.0); HEMATOCRIT 38.5 % (34.2-44.1); HEMOGLOBIN 12.3 g/dL (12.0-16.0); LYMPHOCYTES % 15.9 % (18.0-39.1); MEAN CORPUSCULAR HEMOGLOBIN 28.1 pg (28-32); MEAN CORPUSCULAR HGB CONC 31.9 g/dL (31-35); MEAN CORPUSCULAR VOLUME 88.1 fL (81-99); MONOCYTES # (AUTO) 0.7 (0.2-0.8); MONOCYTES % 5.3 % (4.4-11.3); NEUTROPHILS # (AUTO) 9.5 (2.1-6.9); NEUTROPHILS % 76.9 % (38.7-80.0); PLATELET COUNT 460 x10e3/uL (140-360); RED BLOOD COUNT 4.37 x10e6/uL (3.6-5.1); RED CELL DISTRIBUTION WIDTH 15.7 % (11.7-14.4)
[2021-10-23 15:41] LABS: INR 0.94; PROTHROMBIN TIME 13.4 seconds (11.9-14.5)
[2021-10-23 15:42] LABS: PARTIAL THROMBOPLASTIN TIME 33.7 seconds (23.8-35.5)
[2021-10-23 16:00] VITALS: BP 140/70
[2021-10-23] MEDS ORDERED: FUROSEMIDE INJ 10 MG/ML 2 ML VIAL IV ONE (16:00)
[2021-10-23] MEDS: LACTULOSE SYRUP 20 GM/30 ML UDC PO PRN (16:37)
[2021-10-23] MEDS: DEXTROSE 5%/0.9% SOD CHL 1,000 ML IV SCH (16:58)
[2021-10-23] MEDS: HEPARIN 25,000 UNIT 1,000 UNIT in DEXTROSE 5% 250ML 250 ML IV SCH (18:08)
[2021-10-23] MEDS: Morphine 2mg Syringe 2 MG/ML SYR IV PRN (18:50)
[2021-10-23 20:22] VITALS: BP 149/84
[2021-10-23 20:32] VITALS: BP 149/84
[2021-10-23] MEDS: ONDANSETRON HCL INJ 2MG/ML 2ML 2 MG/ML VIAL IV PRN (22:23)
[2021-10-23] MEDS: MELATONIN 5 MG TABLET PO PRN (22:23)
[2021-10-24] VITALS (8 sets, daily range): BP systolic 135–177; BP diastolic 75–85
[2021-10-24] MEDS: Morphine 2mg Syringe 2 MG/ML SYR IV PRN ×3 (00:57→11:20)
[2021-10-24] MEDS ORDERED: CEFTRIAXONE 1 GM VIAL IM ONE (01:45)
[2021-10-24] MEDS: DEXTROSE 5%/0.9% SOD CHL 1,000 ML IV SCH ×3 (01:50→21:16)
[2021-10-24 05:59] LABS: BASOPHILS # (AUTO) 0.1 (0.0-0.1); BASOPHILS % 0.5 % (0.0-1.0); EOSINOPHILS # (AUTO) 0.4 (0.0-0.4); EOSINOPHILS % 3.7 % (0.0-6.0); HEMATOCRIT 35.5 % (34.2-44.1); HEMOGLOBIN 11.3 g/dL (12.0-16.0); LYMPHOCYTES # (AUTO) 2.8 (1.0-3.2); LYMPHOCYTES % 25.2 % (18.0-39.1); MEAN CORPUSCULAR HEMOGLOBIN 28.1 pg (28-32); MEAN CORPUSCULAR HGB CONC 31.8 g/dL (31-35); MEAN CORPUSCULAR VOLUME 88.3 fL (81-99); MONOCYTES # (AUTO) 0.8 (0.2-0.8); NEUTROPHILS # (AUTO) 7.1 (2.1-6.9); NEUTROPHILS % 63.2 % (38.7-80.0); PLATELET COUNT 413 x10e3/uL (140-360); RED BLOOD COUNT 4.02 x10e6/uL (3.6-5.1); RED CELL DISTRIBUTION WIDTH 15.3 % (11.7-14.4)
[2021-10-24 06:29] LABS: ANION GAP 12.1 mmol/L (8-16); CALCIUM 9.4 mg/dL (8.4-10.2); CREATININE, SERUM 0.58 mg/dL (0.57-1.11); POTASSIUM 3.1 mmol/L (3.5-5.1)
[2021-10-24 06:58] LABS: MAGNESIUM 1.8 MG/DL (1.3-2.1); PHOSPHORUS 3.4 MG/DL (2.3-4.7)
[2021-10-24 07:16] LABS: THYROID STIMULATING HORMONE 0.661 uIU/mL (0.350-4.940)
[2021-10-24] MEDS: ONDANSETRON HCL INJ 2MG/ML 2ML 2 MG/ML VIAL IV PRN (08:56)
[2021-10-24] MEDS: CEFTRIAXONE 1 GM in SODIUM CHLORIDE 0.9% 50ML 50 ML IV SCH ×2 (10:01→21:16)
[2021-10-24] MEDS ORDERED: KETOROLAC TROMETHAMINE 30 MG/ML VIAL IV PRN (13:15)
[2021-10-24] MEDS ORDERED: GABAPENTIN 100 MG CAP PO SCH (13:30)
[2021-10-24] MEDS: HEPARIN 25,000 UNIT 1,000 UNIT in DEXTROSE 5% 250ML 250 ML IV SCH (15:00)
[2021-10-24] MEDS ORDERED: NEOSTIGMINE 1 MG/ML 10ML VIAL ONE (15:22)
[2021-10-24] MEDS: AMLODIPINE BESYLATE 5 MG TAB PO SCH (18:10)
[2021-10-24] MEDS: PANTOPRAZOLE SOD 40 MG TABEC PO SCH (18:10)
[2021-10-24] MEDS ORDERED: LIDOCAINE HCL 2% LOCAL INJ 5 ML SDV VIAL INJ ONE (19:19)
[2021-10-24] MEDS ORDERED: PROPOFOL IV EMULSION 10 MG/ML 20 ML VIAL ONE (19:19)
[2021-10-24] MEDS ORDERED: SODIUM CHLORIDE 0.9% 50ML 50 ML ONE (19:53)
[2021-10-24] MEDS ORDERED: IOPAMIDOL 370 MG/ML 200 ML INFUS..BTL INJ ONE (19:53)
[2021-10-24] MEDS: SERTRALINE HCL 100 MG TAB PO SCH (21:16)
[2021-10-24] MEDS: MELATONIN 5 MG TABLET PO PRN (21:34)
[2021-10-25] VITALS (9 sets, daily range): BP systolic 138–151; BP diastolic 67–80
[2021-10-25] MEDS: ONDANSETRON HCL INJ 2MG/ML 2ML 2 MG/ML VIAL IV PRN ×3 (01:08→23:06)
[2021-10-25] MEDS: PANTOPRAZOLE SOD 40 MG TABEC PO SCH (08:50)
[2021-10-25] MEDS: CEFTRIAXONE 1 GM in SODIUM CHLORIDE 0.9% 50ML 50 ML IV SCH ×2 (08:50→19:42)
[2021-10-25] MEDS: AMLODIPINE BESYLATE 5 MG TAB PO SCH (08:50)
[2021-10-25] MEDS: MODAFINIL 100 MG TAB PO SCH (08:50)
[2021-10-25 09:08] LABS: BASOPHILS # (AUTO) 0.1 (0.0-0.1); BASOPHILS % 0.7 % (0.0-1.0); EOSINOPHILS # (AUTO) 0.3 (0.0-0.4); EOSINOPHILS % 2.7 % (0.0-6.0); HEMATOCRIT 35.8 % (34.2-44.1); HEMOGLOBIN 11.5 g/dL (12.0-16.0); LYMPHOCYTES % 20.2 % (18.0-39.1); MEAN CORPUSCULAR HEMOGLOBIN 27.9 pg (28-32); MEAN CORPUSCULAR HGB CONC 32.1 g/dL (31-35); MEAN CORPUSCULAR VOLUME 86.9 fL (81-99); MONOCYTES # (AUTO) 0.5 (0.2-0.8); MONOCYTES % 4.4 % (4.4-11.3); NEUTROPHILS # (AUTO) 7.3 (2.1-6.9); NEUTROPHILS % 71.6 % (38.7-80.0); PLATELET COUNT 441 x10e3/uL (140-360); RED BLOOD COUNT 4.12 x10e6/uL (3.6-5.1)
[2021-10-25 09:36] LABS: ANION GAP 12.5 mmol/L (8-16); CALCIUM 9.1 mg/dL (8.4-10.2); CREATININE, SERUM 0.6 mg/dL (0.57-1.11); POTASSIUM 3.5 mmol/L (3.5-5.1)
[2021-10-25 10:55] LABS: FERRITIN 60.54 ng/mL (4.63-204.00)
[2021-10-25] MEDS: HEPARIN 25,000 UNIT 1,000 UNIT in DEXTROSE 5% 250ML 250 ML IV SCH (11:00)
[2021-10-25] MEDS: DEXTROSE 5%/0.9% SOD CHL 1,000 ML IV SCH ×2 (11:41→16:30)
[2021-10-25] MEDS: LACTULOSE SYRUP 20 GM/30 ML UDC PO PRN (19:42)
[2021-10-25] MEDS: SERTRALINE HCL 100 MG TAB PO SCH (19:42)
[2021-10-26] MEDS: DEXTROSE 5%/0.9% SOD CHL 1,000 ML IV SCH ×2 (02:33→12:30)
[2021-10-26] MEDS ORDERED: ONDANSETRON HCL INJ 2MG/ML 2ML 2 MG/ML VIAL IV PRN (02:45)
[2021-10-26 04:45] VITALS: BP 144/77
[2021-10-26 04:57] LABS: HEMATOCRIT 31.9 % (34.2-44.1); HEMOGLOBIN 10.2 g/dL (12.0-16.0)
[2021-10-26 05:17] LABS: ANION GAP 12.2 mmol/L (8-16); CREATININE, SERUM 0.54 mg/dL (0.57-1.11); POTASSIUM 3.2 mmol/L (3.5-5.1)
[2021-10-26 07:43] VITALS: BP 155/70
[2021-10-26 07:59] VITALS: BP 155/70
[2021-10-26] MEDS: PANTOPRAZOLE SOD 40 MG TABEC PO SCH (10:23)
[2021-10-26] MEDS: CEFTRIAXONE 1 GM in SODIUM CHLORIDE 0.9% 50ML 50 ML IV SCH (10:24)
[2021-10-26] MEDS: MODAFINIL 100 MG TAB PO SCH (10:24)
[2021-10-26] MEDS: AMLODIPINE BESYLATE 5 MG TAB PO SCH (10:24)
[2021-10-26 12:27] VITALS: BP 157/79
[2021-10-26 15:09] VITALS: BP 140/61
[2021-10-26] MEDS ORDERED: AUGMENTIN 500-1 EACH PO (15:27)
[2021-10-26] MEDS ORDERED: ELIQUIS5 MG PO (15:27)
== END 2021-10-26 16:00 | disposition home or self-care (01) | DRG 393 ==
LOC: ER 10:24 → ERHOLD 11:47 → MED/SURG2 12:45
PROVIDERS: ADMIT Internal Medicine; ATTEND Internal Medicine
PROC: 0DP68UZ Removal of Feeding Device from Stomach, Via Natural or Artificial Opening Endoscopic (ICD-10-PCS; 2021-10-24)
PROC: 0DB68ZX Excision of Stomach, Via Natural or Artificial Opening Endoscopic, Diagnostic (ICD-10-PCS; principal; 2021-10-24 15:00)
PROC: 0DB78ZX Excision of Stomach, Pylorus, Via Natural or Artificial Opening Endoscopic, Diagnostic (ICD-10-PCS; 2021-10-24 15:00)
DX: K94.23 Gastrostomy malfunction (principal); I26.93 Single subsegmental thrombotic pulmonary embolism without acute cor pulmonale; N13.6 Pyonephrosis; M48.56XA Collapsed vertebra, not elsewhere classified, lumbar region, initial encounter for fracture; K31.6 Fistula of stomach and duodenum; G20 Parkinson's disease; I10 Essential (primary) hypertension; F41.9 Anxiety disorder, unspecified; R62.7 Adult failure to thrive; Z87.442 Personal history of urinary calculi; Z96.612 Presence of left artificial shoulder joint; Z88.2 Allergy status to sulfonamides; Z88.7 Allergy status to serum and vaccine; Z68.20 Body mass index [BMI] 20.0-20.9, adult; Z83.3 Family history of diabetes mellitus; Z82.49 Family history of ischemic heart disease and other diseases of the circulatory system; K20.90 Esophagitis, unspecified without bleeding; K44.9 Diaphragmatic hernia without obstruction or gangrene; K29.70 Gastritis, unspecified, without bleeding; K31.7 Polyp of stomach and duodenum; R33.9 Retention of urine, unspecified; Z20.822 Contact with and (suspected) exposure to COVID-19; E83.52 Hypercalcemia; E87.5 Hyperkalemia; Z80.49 Family history of malignant neoplasm of other genital organs; Z87.891 Personal history of nicotine dependence; D64.9 Anemia, unspecified; Y83.3 Surgical operation with formation of external stoma as the cause of abnormal reaction of the patient, or of later complication, without mention of misadventure at the time of the procedure
CPT/HCPCS: 36415; 43239; 43246; 70450; 71260; 74177; 80048; 82105; 82378; 82607; 82728; 82746; 83036; 83540; 83615; 83735; 84100; 84443; 84466; 85014; 85018; 85025; 85045; 85610; 85730; 86301; 86304; 88305; 88312; 93970; 94799; 96361; 97139; 99251; 99284; J0696; J1940; J2001; J2270; J2405; J2710; J7030; J7042; Q9967; U0002

== ENCOUNTER → 2021-12-04 | Outpatient (CLI) | payer MEDICARE, OTHER ==
[~2021-12-04] MED LIST changes: +AUGMENTIN 500-1 EACH PO; +ELIQUIS5 MG PO
== END ==
LOC: NM 16:02
PROVIDERS: ATTEND Urology
DX: N13.30 Unspecified hydronephrosis (principal); Q62.11 Congenital occlusion of ureteropelvic junction
CPT/HCPCS: 78708; A9562

== ENCOUNTER 2022-02-12 17:36 | Inpatient (IN) | payer MEDICARE, OTHER ==
[~2022-02-12] VITALS: Ht 152.4 cm; Wt 45.4 kg
[2022-02-12 17:59] LABS: BASOPHILS # (AUTO) 0.1 (0.0-0.1); BASOPHILS % 0.5 % (0.0-1.0); EOSINOPHILS # (AUTO) 0.2 (0.0-0.4); EOSINOPHILS % 1.9 % (0.0-6.0); HEMOGLOBIN 11.5 g/dL (12.0-16.0); LYMPHOCYTES % 27.6 % (18.0-39.1); MEAN CORPUSCULAR HEMOGLOBIN 28.9 pg (28-32); MEAN CORPUSCULAR HGB CONC 31.9 g/dL (31-35); MEAN CORPUSCULAR VOLUME 90.5 fL (81-99); MONOCYTES # (AUTO) 0.7 (0.2-0.8); NEUTROPHILS # (AUTO) 6.9 (2.1-6.9); NEUTROPHILS % 63.6 % (38.7-80.0); PLATELET COUNT 391 x10e3/uL (140-360); RED BLOOD COUNT 3.98 x10e6/uL (3.6-5.1); RED CELL DISTRIBUTION WIDTH 13.6 % (11.7-14.4)
[2022-02-12 18:14] LABS: ALBUMIN 3.8 g/dL (3.5-5.0); ALBUMIN/GLOBULIN RATIO 1.1 (0.8-2.0); ANION GAP 13.8 mmol/L (8-16); CALCIUM 9.1 mg/dL (8.4-10.2); CREATININE, SERUM 0.73 mg/dL (0.57-1.11); POTASSIUM 3.8 mmol/L (3.5-5.1)
[2022-02-12] MEDS ORDERED: ONDANSETRON HCL INJ 2MG/ML 2ML 2 MG/ML VIAL IV STA (19:09)
[2022-02-12] MEDS ORDERED: Morphine 4mg INJECTION 4 MG/ML INJ IV ONE (19:15)
[2022-02-12 19:27] LABS: CREATINE KINASE 29 IU/L (29-168)
[2022-02-12] MEDS ORDERED: ONDANSETRON HCL INJ 2MG/ML 2ML 2 MG/ML VIAL ONE (19:27)
[2022-02-12] MEDS: SODIUM CHLORIDE 0.9% 1000ML 1,000 ML IV SCH (19:44)
[2022-02-12] MEDS ORDERED: FENTANYL CITRATE/PF 100MCG/2 ML INJ IV STA (20:53)
[2022-02-12] MEDS: ONDANSETRON HCL INJ 2MG/ML 2ML 2 MG/ML VIAL IV PRN (21:25)
[2022-02-13] MEDS ORDERED: CLONAZEPAM 1 MG TAB PO PRN
[2022-02-13] MEDS: ONDANSETRON HCL INJ 2MG/ML 2ML 2 MG/ML VIAL IV PRN ×2 (00:55→05:43)
[2022-02-13] MEDS: Morphine 4mg INJECTION 4 MG/ML INJ IV PRN ×2 (00:55→05:43)
[2022-02-13] MEDS: SODIUM CHLORIDE 0.9% 1000ML 1,000 ML IV SCH ×3 (04:25→15:04)
[2022-02-13 06:02] LABS: BASOPHILS % 0.2 % (0.0-1.0); HEMATOCRIT 32.1 % (34.2-44.1); HEMOGLOBIN 10.2 g/dL (12.0-16.0); LYMPHOCYTES % 10.8 % (18.0-39.1); MEAN CORPUSCULAR HEMOGLOBIN 28.9 pg (28-32); MEAN CORPUSCULAR HGB CONC 31.8 g/dL (31-35); MEAN CORPUSCULAR VOLUME 90.9 fL (81-99); MONOCYTES # (AUTO) 1.1 (0.2-0.8); MONOCYTES % 5.9 % (4.4-11.3); NEUTROPHILS # (AUTO) 15.1 (2.1-6.9); NEUTROPHILS % 82.7 % (38.7-80.0); PLATELET COUNT 369 x10e3/uL (140-360); RED BLOOD COUNT 3.53 x10e6/uL (3.6-5.1); RED CELL DISTRIBUTION WIDTH 13.4 % (11.7-14.4)
[2022-02-13 06:38] LABS: ALBUMIN 3.7 g/dL (3.5-5.0); ALBUMIN/GLOBULIN RATIO 1.1 (0.8-2.0); CALCIUM 9.3 mg/dL (8.4-10.2); CREATININE, SERUM 0.68 mg/dL (0.57-1.11)
[2022-02-13 06:57] LABS: CREATINE KINASE 91 IU/L (29-168)
[2022-02-13] MEDS ORDERED: PROPOFOL IV EMULSION 10 MG/ML 20 ML VIAL ONE (07:58)
[2022-02-13] MEDS ORDERED: LIDOCAINE HCL 2% LOCAL INJ 5 ML SDV VIAL INJ ONE (07:58)
[2022-02-13] MEDS ORDERED: DEXAMETHASONE SOD PHOS INJ 4 MG/ML SDV ONE (07:58)
[2022-02-13] MEDS ORDERED: POVIDONE IODINE 0.05% 0.05 % ML PO ONE (07:58)
[2022-02-13] MEDS ORDERED: SEVOFLURANE INHAL SOLN 250 ML PEN BTL ONE (07:58)
[2022-02-13] MEDS ORDERED: ONDANSETRON HCL INJ 2MG/ML 2ML 2 MG/ML VIAL ONE (07:58)
[2022-02-13 08:07] LABS: CLARITY,URINE SL CLOUDY (CLEAR); COLOR,URINE YELLOW (YELLOW)
[2022-02-13 08:08] LABS: KETONES,URINE TRACE (NEGATIVE); LEUKOCYTE ESTERASE ,URINE NEGATIVE (NEGATIVE); NITRITE,URINE NEGATIVE (NEGATIVE); PROTEIN,URINE DIPSTICK 1+ (NEGATIVE); URINE UROBILINOGEN 0.2 mg/dL (0.2 - 1)
[2022-02-13 08:22] LABS: BACTERIA,URINE FEW /HPF; EPITHELIAL CELLS,URINE RARE /LPF; RBC,URINE 0-5 /HPF (0-5); WBC,URINE (MAN) 0-5 /HPF (0-5)
[2022-02-13] MEDS: LORAZEPAM 1 MG TAB PO PRN (08:42)
[2022-02-13 09:00] VITALS: BP 119/67
[2022-02-13] MEDS ORDERED: FENTANYL CITRATE/PF 100MCG/2 ML INJ ONE ×2 (10:00→14:37)
[2022-02-13 12:11] VITALS: BP 119/67
[2022-02-13] MEDS ORDERED: ONDANSETRON HCL INJ 2MG/ML 2ML 2 MG/ML VIAL IV PRN (13:45)
[2022-02-13] MEDS ORDERED: HYDROCODONE/APAP 7.5MG-325MG 1 EA TAB PO PRN (13:45)
[2022-02-13] MEDS ORDERED: ZOLPIDEM TARTRATE 5 MG TAB PO PRN (13:45)
[2022-02-13] MEDS ORDERED: HYDROCODONE/APAP 5MG-325MG TAB PO PRN (13:45)
[2022-02-13] MEDS ORDERED: ACETAMINOPHEN 650 MG SUPP PR PRN (13:45)
[2022-02-13] MEDS ORDERED: DOCUSATE SODIUM 100 MG CAP PO PRN (13:45)
[2022-02-13] MEDS ORDERED: DIPHENHYDRAMINE HCL INJ 50 MG/ML VIAL IV PRN (13:45)
[2022-02-13] MEDS: KETOROLAC TROMETHAMINE 30 MG/ML VIAL IV PRN (15:31)
[2022-02-13 15:39] VITALS: BP 146/82
[2022-02-13] MEDS ORDERED: ACETAMINOPHEN 1000 MG/100 ML IV PRN (16:00)
[2022-02-13] MEDS ORDERED: ASPIRIN 325 MG TAB PO SCH (17:00)
[2022-02-13] MEDS ORDERED: CELECOXIB 100 MG CAP PO SCH (17:00)
[2022-02-13 20:00] VITALS: BP 124/58
[2022-02-13] MEDS: CELECOXIB 200 MG CAP PO SCH (20:39)
[2022-02-13] MEDS: ASPIRIN 325 MG TAB PO SCH (20:40)
[2022-02-13 21:00] VITALS: BP 124/58
[2022-02-14] VITALS: BP 114/58
[2022-02-14] MEDS ORDERED: TYLENOL EXTRA500 MG PO (00:14)
[2022-02-14] MEDS: SODIUM CHLORIDE 0.9% 1000ML 1,000 ML IV SCH ×2 (02:52→10:08)
[2022-02-14] MEDS: Morphine 4mg INJECTION 4 MG/ML INJ IV PRN (02:53)
[2022-02-14 04:00] VITALS: BP 105/51
[2022-02-14 04:43] LABS: HEMOGLOBIN 9.3 g/dL (12.0-16.0)
[2022-02-14 06:37] LABS: CREATINE KINASE 575 IU/L (29-168)
[2022-02-14] MEDS: LORAZEPAM 1 MG TAB PO PRN (07:22)
[2022-02-14 08:00] VITALS: BP 130/61
[2022-02-14] MEDS ORDERED: ONDANSETRON HCL 4 MG ORAL DISINTEGRATING TAB PO PRN (08:15)
[2022-02-14] MEDS: CELECOXIB 200 MG CAP PO SCH ×3 (08:40→17:40)
[2022-02-14] MEDS: ASPIRIN 325 MG TAB PO SCH (08:40)
[2022-02-14] MEDS: KETOROLAC TROMETHAMINE 30 MG/ML VIAL IV PRN ×2 (09:40→17:41)
[2022-02-14 12:19] VITALS: BP 112/48
[2022-02-14 13:44] VITALS: BP 130/61
[2022-02-14] MEDS ORDERED: APIXABAN 5 MG TABLET PO SCH (14:45)
[2022-02-14] MEDS ORDERED: ACETAMINOPHEN 325 MG TAB PO PRN (14:45)
[2022-02-14] MEDS ORDERED: TRAMADOL/APAP 37.5MG-325MG TAB PO PRN (14:45)
[2022-02-14] MEDS ORDERED: AMLODIPINE BESYL5 MG PO (14:55)
[2022-02-14] MEDS ORDERED: FAMOTIDINE20 MG PO (15:12)
[2022-02-14] MEDS ORDERED: [UNRECOGNIZED DRUG - OTHER] PO (15:12)
[2022-02-14] MEDS ORDERED: SERTRALINE HCL50 MG PO (15:12)
[2022-02-14] MEDS ORDERED: ONDANSETRON ODT4 MG PO (15:12)
[2022-02-14] MEDS ORDERED: NEURONTIN100 MG PO (15:12)
[2022-02-14 15:19] LABS: BASOPHILS # (AUTO) 0.1 (0.0-0.1); BASOPHILS % 0.6 % (0.0-1.0); EOSINOPHILS # (AUTO) 0.3 (0.0-0.4); EOSINOPHILS % 3.1 % (0.0-6.0); HEMOGLOBIN 8.2 g/dL (12.0-16.0); LYMPHOCYTES # (AUTO) 1.5 (1.0-3.2); MEAN CORPUSCULAR HEMOGLOBIN 29.3 pg (28-32); MEAN CORPUSCULAR HGB CONC 31.5 g/dL (31-35); MEAN CORPUSCULAR VOLUME 92.9 fL (81-99); MONOCYTES # (AUTO) 0.8 (0.2-0.8); MONOCYTES % 7.2 % (4.4-11.3); NEUTROPHILS # (AUTO) 7.9 (2.1-6.9); NEUTROPHILS % 74.8 % (38.7-80.0); PLATELET COUNT 270 x10e3/uL (140-360); RED CELL DISTRIBUTION WIDTH 13.4 % (11.7-14.4)
[2022-02-14] MEDS ORDERED: ULTRAM50 MG PO (15:50)
[2022-02-14] MEDS: MODAFINIL 100 MG TAB PO SCH ×2 (17:00→17:40)
[2022-02-15] MEDS ORDERED: LACTOBACILLUS ACIDOPHILUS CAPSULE PO SCH (09:00)
[2022-02-15] MEDS ORDERED: AMLODIPINE BESYLATE 5 MG TAB PO SCH (09:00)
== END 2022-02-14 18:25 | DRG 482 ==
LOC: ER 17:40 → ERHOLD 19:11 → MED/SURG 02-13 11:46
PROVIDERS: ADMIT Internal Medicine; ATTEND Internal Medicine
PROC: 0QS606Z Reposition Right Upper Femur with Intramedullary Internal Fixation Device, Open Approach (ICD-10-PCS; principal; 2022-02-13 12:41)
DX: S72.141A Displaced intertrochanteric fracture of right femur, initial encounter for closed fracture (principal); G20 Parkinson's disease; F32.A Depression, unspecified; I10 Essential (primary) hypertension; M81.0 Age-related osteoporosis without current pathological fracture; G89.4 Chronic pain syndrome; R29.6 Repeated falls; Z96.612 Presence of left artificial shoulder joint; Z90.49 Acquired absence of other specified parts of digestive tract; Z88.2 Allergy status to sulfonamides; Z88.7 Allergy status to serum and vaccine; Z96.642 Presence of left artificial hip joint; Z82.49 Family history of ischemic heart disease and other diseases of the circulatory system; Z80.8 Family history of malignant neoplasm of other organs or systems; Z20.822 Contact with and (suspected) exposure to COVID-19; Z91.81 History of falling; W01.0XXA Fall on same level from slipping, tripping and stumbling without subsequent striking against object, initial encounter; Y92.010 Kitchen of single-family (private) house as the place of occurrence of the external cause; Z87.442 Personal history of urinary calculi; Z87.440 Personal history of urinary (tract) infections
CPT/HCPCS: 36415; 76000; 80053; 81001; 82550; 82553; 84484; 85014; 85018; 85025; 86850; 86900; 93005; 94799; 96360; 99285; C1713; J0690; J1100; J1200; J1885; J2001; J2270; J2405; J3010; J7030

== ENCOUNTER 2022-03-05 02:32 | Inpatient (IN) | payer MEDICARE, OTHER ==
[~2022-03-05] VITALS: Ht 152.4 cm; Wt 45.4 kg
[~2022-03-05 02:32] MED LIST changes: +FAMOTIDINE20 MG PO; +NEURONTIN100 MG PO; +ONDANSETRON ODT4 MG PO; +SERTRALINE HCL50 MG PO; +TYLENOL EXTRA500 MG PO; +ULTRAM50 MG PO; +[UNRECOGNIZED DRUG - OTHER] PO
[2022-03-05] MEDS ORDERED: Morphine 4mg INJECTION 4 MG/ML INJ IV ONE (04:00)
[2022-03-05] MEDS ORDERED: ONDANSETRON HCL INJ 2MG/ML 2ML 2 MG/ML VIAL IV PRN (04:45)
[2022-03-05] MEDS: SODIUM CHLORIDE 0.9% 1000ML 1,000 ML IV SCH ×3 (04:55→20:45)
[2022-03-05 05:07] LABS: BASOPHILS # (AUTO) 0.1 (0.0-0.1); BASOPHILS % 0.7 % (0.0-1.0); EOSINOPHILS # (AUTO) 0.8 (0.0-0.4); EOSINOPHILS % 7.2 % (0.0-6.0); HEMATOCRIT 31.3 % (34.2-44.1); HEMOGLOBIN 9.8 g/dL (12.0-16.0); LYMPHOCYTES % 18.3 % (18.0-39.1); MEAN CORPUSCULAR HEMOGLOBIN 29.5 pg (28-32); MEAN CORPUSCULAR HGB CONC 31.3 g/dL (31-35); MEAN CORPUSCULAR VOLUME 94.3 fL (81-99); MONOCYTES # (AUTO) 0.6 (0.2-0.8); MONOCYTES % 5.4 % (4.4-11.3); NEUTROPHILS # (AUTO) 7.5 (2.1-6.9); NEUTROPHILS % 68.1 % (38.7-80.0); PLATELET COUNT 507 x10e3/uL (140-360); RED BLOOD COUNT 3.32 x10e6/uL (3.6-5.1); RED CELL DISTRIBUTION WIDTH 14.7 % (11.7-14.4)
[2022-03-05 05:27] LABS: ANION GAP 14.2 mmol/L (8-16); CALCIUM 8.8 mg/dL (8.4-10.2); CREATININE, SERUM 0.54 mg/dL (0.57-1.11); POTASSIUM 4.2 mmol/L (3.5-5.1)
[2022-03-05] MEDS: TRAMADOL HCL 50 MG TAB PO PRN ×2 (08:38→17:51)
[2022-03-05] MEDS: AMLODIPINE BESYLATE 5 MG TAB PO SCH (08:38)
[2022-03-05] MEDS ORDERED: CLONAZEPAM 1 MG TAB PO PRN (10:30)
[2022-03-05 14:12] VITALS: BP 147/85
[2022-03-05] MEDS ORDERED: KLONOPIN2 MG PO (14:39)
[2022-03-05] MEDS ORDERED: BENADRYL25 M1 PO (14:40)
[2022-03-05] MEDS ORDERED: VITAMIN D3125 MCG PO (14:42)
[2022-03-05] MEDS ORDERED: VITAMIN E PO (14:42)
[2022-03-05 14:43] VITALS: BP 147/85
[2022-03-05 14:51] VITALS: BP 147/85
[2022-03-05] MEDS: Morphine 4mg INJECTION 4 MG/ML INJ IV PRN ×3 (15:00→23:50)
[2022-03-05 16:00] VITALS: BP 135/74
[2022-03-05 20:00] VITALS: BP 127/67
[2022-03-05 21:00] VITALS: BP 135/74
[2022-03-06] VITALS: BP 122/69
[2022-03-06] MEDS: TRAMADOL HCL 50 MG TAB PO PRN ×3 (02:25→16:21)
[2022-03-06] MEDS: SODIUM CHLORIDE 0.9% 1000ML 1,000 ML IV SCH ×2 (03:00→11:23)
[2022-03-06 04:00] VITALS: BP 137/76
[2022-03-06 05:13] LABS: BASOPHILS # (AUTO) 0.1 (0.0-0.1); BASOPHILS % 0.4 % (0.0-1.0); EOSINOPHILS # (AUTO) 0.6 (0.0-0.4); EOSINOPHILS % 4.5 % (0.0-6.0); HEMATOCRIT 32.3 % (34.2-44.1); HEMOGLOBIN 10.6 g/dL (12.0-16.0); LYMPHOCYTES # (AUTO) 1.9 (1.0-3.2); LYMPHOCYTES % 13.4 % (18.0-39.1); MEAN CORPUSCULAR HEMOGLOBIN 29.8 pg (28-32); MEAN CORPUSCULAR HGB CONC 32.8 g/dL (31-35); MEAN CORPUSCULAR VOLUME 90.7 fL (81-99); MONOCYTES # (AUTO) 0.7 (0.2-0.8); MONOCYTES % 4.6 % (4.4-11.3); NEUTROPHILS # (AUTO) 10.7 (2.1-6.9); NEUTROPHILS % 76.7 % (38.7-80.0); PLATELET COUNT 472 x10e3/uL (140-360); RED BLOOD COUNT 3.56 x10e6/uL (3.6-5.1); RED CELL DISTRIBUTION WIDTH 14.3 % (11.7-14.4)
[2022-03-06 05:31] LABS: CALCIUM 9.2 mg/dL (8.4-10.2); CREATININE, SERUM 0.51 mg/dL (0.57-1.11)
[2022-03-06] MEDS: Morphine 4mg INJECTION 4 MG/ML INJ IV PRN ×2 (05:55→09:27)
[2022-03-06 07:35] VITALS: BP 132/71
[2022-03-06 08:11] VITALS: BP 132/71
[2022-03-06] MEDS: AMLODIPINE BESYLATE 5 MG TAB PO SCH (09:27)
[2022-03-06] MEDS ORDERED: CLONAZEPAM 2 MG PO PRN (11:00)
[2022-03-06] MEDS ORDERED: MODAFINIL 100 MG TAB PO SCH (11:00)
[2022-03-06] MEDS ORDERED: POLYETHYLENE GLYCOL 3350 17 GM PACK PO PRN (11:30)
[2022-03-06] MEDS ORDERED: LIDOCAINE 4% PATCH TP SCH ×2 (12:00→13:00)
[2022-03-06 12:03] VITALS: BP 143/68
[2022-03-06] MEDS ORDERED: ULTRAM50 MG PO (15:41)
[2022-03-06] MEDS ORDERED: ONDANSETRON HCL 4 MG ORAL DISINTEGRATING TAB PO PRN (15:45)
[2022-03-06 16:05] VITALS: BP 145/83
[2022-03-06] MEDS ORDERED: APIXABAN 5 MG TABLET PO SCH (17:00)
[2022-03-06] MEDS ORDERED: CLONAZEPAM 1 MG TAB PO PRN (21:00)
== END 2022-03-06 17:16 | disposition home health service (06) | DRG 536 ==
LOC: ER 02:39 → ERHOLD 04:39 → MED/SURG 14:41
PROVIDERS: ADMIT Internal Medicine; ATTEND Internal Medicine
DX: S72.091A Other fracture of head and neck of right femur, initial encounter for closed fracture (principal); M97.01XA Periprosthetic fracture around internal prosthetic right hip joint, initial encounter; M48.56XA Collapsed vertebra, not elsewhere classified, lumbar region, initial encounter for fracture; W18.11XA Fall from or off toilet without subsequent striking against object, initial encounter; Y93.89 Activity, other specified; Y92.012 Bathroom of single-family (private) house as the place of occurrence of the external cause; I10 Essential (primary) hypertension; G20 Parkinson's disease; R29.6 Repeated falls; F32.A Depression, unspecified; G89.4 Chronic pain syndrome; Z20.822 Contact with and (suspected) exposure to COVID-19; Z91.81 History of falling; Z86.711 Personal history of pulmonary embolism; Z79.01 Long term (current) use of anticoagulants; Z90.49 Acquired absence of other specified parts of digestive tract; Z88.2 Allergy status to sulfonamides; Z88.7 Allergy status to serum and vaccine
CPT/HCPCS: 36415; 70450; 72125; 72131; 80048; 85025; 94799; 96361; 99284; J2270; J2405; J7030

== ENCOUNTER → 2023-11-15 | Outpatient (REF) | payer MEDICARE, OTHER ==
[~2023-11-15] MED LIST changes: +BENADRYL25 M1 PO; +FUROSEMIDE INJ 10 MG/ML 4 ML VIAL ONE; +KLONOPIN2 MG PO; +VITAMIN D3125 MCG PO; +VITAMIN E PO
== END ==
LOC: NM 10:40
PROVIDERS: ATTEND Urology
DX: N13.30 Unspecified hydronephrosis (principal); Q62.11 Congenital occlusion of ureteropelvic junction
CPT/HCPCS: 78708; A9562; J1940

== ENCOUNTER 2023-12-02 07:36 | Emergency (ER) | payer MEDICARE, OTHER ==
[~2023-12-02] VITALS: Ht 160 cm; Wt 54.4 kg
[~2023-12-02 07:36] MED LIST changes: -FUROSEMIDE INJ 10 MG/ML 4 ML VIAL ONE
[2023-12-02] MEDS: KETOROLAC TROMETHAMINE 60 MG/2 ML VIAL IM ONE (08:34)
[2023-12-02] MEDS: HYDROCODONE/APAP 5MG-325MG TAB PO ONE (08:34)
[2023-12-02] MEDS ORDERED: HYDROCODON-ACE1 EA11 PO (09:52)
[2023-12-02 10:07] VITALS: O2SAT 98
== END 2023-12-02 10:15 | disposition home or self-care (01) ==
LOC: ER 07:41
DX: M54.50 Low back pain, unspecified (principal); S32.591A Other specified fracture of right pubis, initial encounter for closed fracture; W01.198A Fall on same level from slipping, tripping and stumbling with subsequent striking against other object, initial encounter; Y92.89 Other specified places as the place of occurrence of the external cause; G20.A1 Parkinson's disease without dyskinesia, without mention of fluctuations; I10 Essential (primary) hypertension; F32.A Depression, unspecified; M19.09 Primary osteoarthritis, other specified site; Z87.442 Personal history of urinary calculi
CPT/HCPCS: 72131; 72192; 99283; J1885

== ENCOUNTER 2025-01-27 13:52 | Emergency (ER) | payer MEDICARE, OTHER ==
[~2025-01-27] VITALS: Ht 152.4 cm; Wt 45.8 kg
[~2025-01-27 13:52] MED LIST changes: +HYDROCODON-ACE1 EA11 PO
[2025-01-27 14:41] LABS: BASOPHILS % 0.4 % (0.0-1.0); EOSINOPHILS % 2.1 % (0.0-6.0); LYMPHOCYTES % 20.5 % (18.0-39.1); MONOCYTES % 5.5 % (4.4-11.3); NEUTROPHILS % 71.2 % (38.7-80.0); RED CELL DISTRIBUTION WIDTH 14.3 % (11.7-14.4)
[2025-01-27 14:54] LABS: EST GLOMERULAR FILTRATION RATE 91.0 ML/MIN (>=60)
[2025-01-27 16:47] LABS: LEUKOCYTE ESTERASE ,URINE SMALL (NEGATIVE); PROTEIN,URINE DIPSTICK NEGATIVE (NEGATIVE); URINE UROBILINOGEN 0.2 mg/dL (0.2 - 1)
[2025-01-27 17:00] LABS: EPITHELIAL CELLS,URINE RARE /LPF
[2025-01-27] MEDS: ENOXAPARIN SODIUM INJ 100 MG/ML SYR SC ONE (17:46)
[2025-01-27 17:51] VITALS: TEMP 98.3
[2025-01-27] MEDS ORDERED: ACETAMINOPHEN500 MG PO (18:44)
[2025-01-27] MEDS ORDERED: HYDROCODON-ACE1 EA12 PO (18:44)
[2025-01-27 19:00] VITALS: PULSE 103; RESP 19
[2025-01-27] MEDS ORDERED: IOPAMIDOL 370 MG/ML 100 ML INFUS..BTL INJ ONE (20:16)
[2025-01-27 20:50] VITALS: BP 159/88; O2SAT 98
== END 2025-01-27 20:30 | disposition short-term general hospital (02) ==
LOC: ER 14:27
DX: I77.74 Dissection of vertebral artery (principal); R29.810 Facial weakness; G20.A1 Parkinson's disease without dyskinesia, without mention of fluctuations; I10 Essential (primary) hypertension; Z86.718 Personal history of other venous thrombosis and embolism; Z79.01 Long term (current) use of anticoagulants; Z86.711 Personal history of pulmonary embolism; Z87.442 Personal history of urinary calculi; M19.90 Unspecified osteoarthritis, unspecified site; F32.A Depression, unspecified
CPT/HCPCS: 36415; 70496; 70498; 80053; 81001; 85025; 93005; 99284; J1650; Q9967